=== PATIENT | male | born 1950 | race American Indian/Alaskan Native ===

== ENCOUNTER 2018-11-13 17:46 | Emergency (ER) | payer SELFPAY ==
[2018-11-13 18:57] VITALS: BP 122/61
[2018-11-13] MEDS ORDERED: NACL 0.9% 1000 ML 1,000 ML IV ONE (19:04)
--- NOTE | 2018-11-13 19:10 | Emergency Department Report ---
HPI - General Chief Complaint: Syncope Time Seen by Provider: 11/13/18 18:58 - HPI HPI: 68-year-old male presents to the emergency department after he got nauseated, vomited, got dizzy and had a near syncopal episode. The patient was outside at the [facility] working on his car today. He started getting dizzy and had not eaten much food so he drank a Coca-Cola and then chugged a bottle of water. Shortly afterwards, the patient got nauseated, vomited, and had to sit down in a chair before he passed out. He says that he never lost consciousness but definitely felt like he was out of it. When his family members called for EMS and he was brought in and received a liter of IV fluid. Currently, the patient is awake and alert, and says that he feels greatly improved. He denies any past medical history. He denies any tobacco, illicit drug or alcohol use. No recent travel or sick contacts at home. He does not have a primary care physician. ED Past Medical Hx - Past Medical History Previous Medical History?: No - Surgical History Past Surgical History?: No - Social History Smoking Status: Former Smoker Substance Use Type: None ED Review of Systems ROS: Stated complaint: N/V Other details as noted in HPI Comment: All other systems reviewed and negative Constitutional: denies: chills, fever Eyes: denies: eye pain, vision change ENT: denies: ear pain, throat pain Respiratory: denies: cough, shortness of breath Cardiovascular: denies: chest pain, palpitations Gastrointestinal: nausea, vomiting Genitourinary: denies: dysuria, discharge Musculoskeletal: denies: back pain, arthralgia Skin: denies: rash, lesions Neurological: other (dizziness). denies: headache Physical Exam - Physical Exam Vital Signs: Vital Signs 11/13/18 11/13/18 18:55 18:56 Temperature 98.4 F Pulse Rate 68 Respiratory 18 18 Rate Blood Pressure 122/61 [Left] O2 Sat by Pulse 100 100 Oximetry Physical Exam: GENERAL: The patient is well-developed well-nourished. HENT: Normocephalic. Atraumatic. Patient has moist mucous membranes. EYES: Extraocular motions are intact. Pupils equal reactive to light bilaterally. No nystagmus. NECK: Supple. Trachea is midline. CHEST/LUNGS: Clear to auscultation. There is no respiratory distress noted. HEART/CARDIOVASCULAR: Regular. There is no tachycardia. There is no murmur. ABDOMEN: Abdomen is soft, nontender. Patient has normal bowel sounds. There is no abdominal distention. SKIN: Skin is warm and dry. NEURO: The patient is awake, alert, and oriented. The patient is cooperative. The patient has no focal neurologic deficits. The patient has normal speech. Cranial nerves II through XII grossly intact. No pronator drift. MUSCULOSKELETAL: There is no tenderness or deformity. There is no limitation range of motion. There is no evidence of acute injury. ED Course Vital Signs 11/13/18 11/13/18 18:55 18:56 Temperature 98.4 F Pulse Rate 68 Respiratory 18 18 Rate Blood Pressure 122/61 [Left] O2 Sat by Pulse 100 100 Oximetry ED Medical Decision Making - Lab Data Result diagrams: 11/13/18 19:10 11/13/18 19:10 - EKG Data -: EKG Interpreted by Wy EKG shows normal: sinus rhythm, axis (left axis deviation), intervals, QRS complexes (LAFB), ST-T waves Rate: normal - EKG Data When compared to previous EKG there are: previous EKG unavailable Interpretation: other (Sinus, LAFB. No STEMI) - Medical Decision Making This patient presents to the emergency department by EMS after he had a near syncopal episode with an episode of nausea and vomiting. It may have been secondary to extended exposure to the sun. EKG did not show any signs of ST elevation [place] or dysrhythmia. Labs were unremarkable including CBC, metabolic panel, TSH, troponin and urinalysis. His vital signs were stable throughout his ED course including being afebrile. The patient was seen ambulatory within the emergency department and both appears and feels stable. He has been awake and alert throughout his ED course and there is been no other further signs of syncope, seizure, or any neurological deficits. At this time, it appears safe for discharge home for this patient. He has been instructed to follow up with primary care and return to the ER with any worsening of his symptoms or any acute distress. - Differential Diagnosis orthostatic hypotension, dehydration, dysrhythmia, hypoglycemia Critical Care Time: No Critical care attestation.: If time is entered above; I have spent that time in minutes in the direct care of this critically ill patient, excluding procedure time. ED Disposition Clinical Impression: Near syncope, Dizziness Disposition: DC-01 TO HOME OR SELFCARE Is pt being admited?: No Condition: Stable Instructions: Near Syncope (ED), Lightheadedness (ED), Dizziness (ED) Additional Instructions: Please follow-up with your primary care physician in the next few days. Return to the emergency Department with any worsening of your symptoms or any acute distress. Referrals: [facility] [Outside] - 2-3 Days MAICO HUNG MD [Staff Physician] - 2-3 Days Time of Disposition: 23:41
[2018-11-13 19:21] LABS: Hematocrit 42.4 % (35.5-45.6); Hemoglobin 13.9 gm/dl (11.8-15.2); Mean Corpuscular HGB Conc 33 % (32-34); Mean Corpuscular Volume 92 fl (84-94); Platelet Count 159 K/mm3 (140-440); Red Blood Count 4.63 M/mm3 (3.65-5.03); Red Cell Distribution Width 13.7 % (13.2-15.2)
[2018-11-13 19:44] LABS: Alanine Aminotransferase 12 units/L (7-56); Albumin 4.3 g/dL (3.9-5); BUN/Creatinine Ratio 7; Blood Urea Nitrogen 10 mg/dL (9-20); Calcium 9.2 mg/dL (8.4-10.2); Hemolysis Index 12
[2018-11-13 21:03] LABS: Color,Urine Yellow (Yellow)
[2018-11-13 21:04] LABS: Bilirubin,Urine NEG (Negative); Blood,Urine NEG (Negative); Mucus,Urine FEW /HPF; Protein,Urine <15 mg/dL mg/dL (Negative); Urobilinogen,Urine < 2.0 mg/dL (<2.0)
== END 2018-11-13 22:02 | disposition home or self-care (01) ==
LOC: ED 17:46
DX: R55 Syncope and collapse (principal); R11.2 Nausea with vomiting, unspecified; R42 Dizziness and giddiness; Z87.891 Personal history of nicotine dependence
CPT/HCPCS: 36415; 80053; 81001; 82550; 84443; 84484; 85027; 93005; 93010; 96360; 96361; 99284; J7030

== ENCOUNTER 2020-01-16 12:59 | Emergency (ER) | payer MEDICAID ==
[2020-01-16] MEDS ORDERED: DIPHtheria,PERTUSSIS(ACELL),TETANUS VACCINE/PF 0.5 ML VIAL IM ONE (14:33)
--- NOTE | 2020-01-16 15:12 | XRay Report ---
RIGHT HAND 3 VIEWS INDICATION / CLINICAL INFORMATION: right hand pain. COMPARISON: None available. FINDINGS: No significant skeletal abnormality Signer Name: Jonathon Amin MD FACJamel Signed: 01/16/2020 3:07 PM Workstation Name: [id number]
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
[2020-01-16 16:11] VITALS: BP 134/68
== END 2020-01-16 16:43 | disposition home or self-care (01) ==
LOC: ED 12:59
DX: S66.911A Strain of unspecified muscle, fascia and tendon at wrist and hand level, right hand, initial encounter (principal); S61.431A Puncture wound without foreign body of right hand, initial encounter; F32.9 Major depressive disorder, single episode, unspecified; Z87.891 Personal history of nicotine dependence; Z79.899 Other long term (current) drug therapy; W45.0XXA Nail entering through skin, initial encounter; Y93.89 Activity, other specified; Y92.89 Other specified places as the place of occurrence of the external cause; Y99.8 Other external cause status
CPT/HCPCS: 90471; 90715

== ENCOUNTER 2021-08-15 18:00 | Emergency (ER) | payer MEDICAID ==
--- NOTE | 2021-08-15 21:22 | XRay Report ---
CHEST 1 VIEW 08/15/2021 8:08 PM INDICATION / CLINICAL INFORMATION: Weakness. General weakness with bilateral pedal edema x3 days. COMPARISON: None available. FINDINGS: SUPPORT DEVICES: None. HEART / MEDIASTINUM: Heart is upper normal size. LUNGS / PLEURA: No significant pulmonary or pleural abnormality. No pneumothorax. ADDITIONAL FINDINGS: No significant additional findings. IMPRESSION: 1. Borderline cardiomegaly but no acute pulmonary or pleural findings. Signer Name: Hannah Paiz MD Signed: 08/15/2021 9:18 PM Workstation Name: [id number]
[2021-08-15 21:35] LABS: Bilirubin,Urine NEG (Negative); Blood,Urine NEG (Negative); Color,Urine Yellow (Yellow); Mucus,Urine FEW /HPF; Protein,Urine <15 mg/dL mg/dL (Negative); Urobilinogen,Urine < 2.0 mg/dL (<2.0)
[2021-08-15 21:37] LABS: Basophils % (Auto) 0.8 % (0.0-1.8); Eosinophils # (Auto) 0.2 K/mm3 (0.0-0.4); Eosinophils % (Auto) 4.8 % (0.0-4.3); Hematocrit 36.4 % (35.5-45.6); Hemoglobin 11.9 gm/dl (11.8-15.2); Lymphocytes # (Auto) 1.3 K/mm3 (1.2-5.4); Lymphocytes % (Auto) 26.9 % (13.4-35.0); Mean Corpuscular HGB Conc 33 % (32-34); Mean Corpuscular Volume 91 fl (84-94); Monocytes # (Auto) 0.7 K/mm3 (0.0-0.8); Monocytes % (Auto) 14.8 % (0.0-7.3); Platelet Count 188 K/mm3 (140-440); Red Blood Count 4.01 M/mm3 (3.65-5.03); Red Cell Distribution Width 13.6 % (13.2-15.2)
[2021-08-15 21:43] LABS: Amphetamine Screen,Urine PRESUMPTIVE NEGATIVE; Benzodiazepines Screen,Urine PRESUMPTIVE NEGATIVE; Cannabinoid Screen,Urine PRESUMPTIVE NEGATIVE; Cocaine Screen,Urine PRESUMPTIVE NEGATIVE; Methadone Screen,Urine PRESUMPTIVE NEGATIVE; Opiate Screen,Urine PRESUMPTIVE NEGATIVE
[2021-08-15 21:45] LABS: Alanine Aminotransferase 13 units/L (7-56); Albumin 3.7 g/dL (3.9-5); BUN/Creatinine Ratio 7; Blood Urea Nitrogen 8 mg/dL (9-20); Calcium 8.9 mg/dL (8.4-10.2); Hemolysis Index 4
[2021-08-15 21:53] LABS: INR 0.93 (0.87-1.13)
[2021-08-15 23:07] LABS: C-Reactive Protein 0.8 mg/dL (0.00-1.30)
--- NOTE | 2021-08-15 23:25 | Emergency Department Report ---
ED General Adult HPI - General Chief complaint: Weakness Stated complaint: WEAKNESS Time Seen by Provider: 08/15/21 20:02 Source: patient, EMS Mode of arrival: Stretcher Limitations: No Limitations - History of Present Illness Initial comments: [place] REPORTS GENERAL WEAKNESS WITH BILATERAL PEDAL EDEMA. X3 DAYS. HX DEPRESSION. PT WAS SENT FROM HIS DOCTOR IVETH FOR EVALUATION OF le EDEMA BILATERLLY , TO RULE OUT hf crf , NO SOB NO CHETS PAIN NO LEG PAIN -: Gradual, days(s) Severity scale (0 -10): 6 Worsens with: none Associated Symptoms: denies: denies other symptoms - Related Data Previous Rx's Medication Instructions Recorded Last Taken Type Naproxen 500 mg PO Q12H PRN #12 tablet 01/16/20 Unknown Rx cephALEXin [Keflex] 500 mg PO Q8HR #21 cap 01/16/20 Unknown Rx Furosemide [Lasix] 20 mg PO QDAY #14 tablet 08/15/21 Unknown Rx Allergies Allergy/AdvReac Type Severity Reaction Status Date / Time No Known Allergies Allergy Verified 08/15/21 18:05 ED Review of Systems ROS: Stated complaint: WEAKNESS Other details as noted in HPI Constitutional: denies: chills, fever Eyes: denies: eye pain, eye discharge, vision change ENT: denies: ear pain, throat pain Respiratory: denies: cough, shortness of breath, wheezing Cardiovascular: denies: chest pain, palpitations Endocrine: no symptoms reported Gastrointestinal: denies: abdominal pain, nausea, diarrhea Genitourinary: denies: urgency, dysuria Musculoskeletal: denies: back pain, joint swelling, arthralgia Skin: denies: rash, lesions Neurological: denies: headache, weakness, paresthesias Psychiatric: denies: anxiety, depression Hematological/Lymphatic: denies: easy bleeding, easy bruising ED Past Medical Hx - Past Medical History Previous Medical History?: No Hx Hypertension: No Hx Psychiatric Treatment: Yes (DEPRESSION /PTSD) - Social History Smoking Status: Never Smoker Substance Use Type: None - Medications Home Medications: Home Medications Medication Instructions Recorded Confirmed Last Taken Type Naproxen 500 mg PO Q12H PRN #12 tablet 01/16/20 Unknown Rx cephALEXin [Keflex] 500 mg PO Q8HR #21 cap 01/16/20 Unknown Rx Furosemide [Lasix] 20 mg PO QDAY #14 tablet 08/15/21 Unknown Rx ED Physical Exam - General Limitations: No Limitations General appearance: alert, in no apparent distress - Head Head exam: Present: atraumatic, normocephalic - Eye Eye exam: Present: normal appearance - ENT ENT exam: Present: mucous membranes moist - Neck Neck exam: Present: normal inspection - Respiratory Respiratory exam: Present: normal lung sounds bilaterally. Absent: respiratory distress - Cardiovascular Cardiovascular Exam: Present: regular rate, normal rhythm. Absent: systolic murmur, diastolic murmur, rubs, gallop - GI/Abdominal GI/Abdominal exam: Present: soft, normal bowel sounds - Rectal Rectal exam: Present: deferred - Extremities Exam Extremities exam: Present: normal inspection, pedal edema - Back Exam Back exam: Present: normal inspection - Neurological Exam Neurological exam: Present: alert, oriented X3 - Psychiatric Psychiatric exam: Present: normal affect, normal mood - Skin Skin exam: Present: warm, dry, intact, normal color. Absent: rash ED Course Vital Signs 08/15/21 08/15/21 08/15/21 18:01 20:07 20:10 Temperature Pulse Rate 80 76 Respiratory 15 Rate Blood Pressure Blood Pressure 135/71 [Left] O2 Sat by Pulse 98 98 98 Oximetry 08/15/21 08/15/21 08/15/21 20:15 20:16 20:30 Temperature 97.8 F Pulse Rate 69 76 64 Respiratory 19 14 17 Rate Blood Pressure 129/65 129/65 Blood Pressure 129/65 [Left] O2 Sat by Pulse 96 99 98 Oximetry 08/15/21 08/15/21 08/15/21 20:46 21:03 21:15 Temperature Pulse Rate 78 91 H 64 Respiratory 20 32 H 17 Rate Blood Pressure 129/65 Blood Pressure [Left] O2 Sat by Pulse 99 95 99 Oximetry 08/15/21 08/15/21 21:31 21:33 Temperature Pulse Rate 70 67 Respiratory 18 Rate Blood Pressure Blood Pressure [Left] O2 Sat by Pulse 97 Oximetry ED Medical Decision Making - Lab Data Result diagrams: 08/15/21 20:59 08/15/21 20:59 - EKG Data -: EKG Interpreted by Tx EKG shows normal: sinus rhythm Rate: normal - EKG Data Interpretation: no acute changes - Radiology Data Radiology results: report reviewed, image reviewed - Medical Decision Making WORK UP SHOWED NORMAL H.H , NORMAL KIDNEY FUNCTION AND BNP WELL X RAY, NO EVIDENCE OF HEART FAILURE OR RENAL FAILURE, WILL START GENTLA DIURESIS AND REFER BACK FOR FOLLOW UP WITH HER PCPC TOMORROW. NOT CONSISTANTW ITH dvt , BIALTERAL WITH ARTHRITIS PAIN. NO SOB OR CHETS PAIN Critical care attestation.: If time is entered above; I have spent that time in minutes in the direct care of this critically ill patient, excluding procedure time. ED Disposition Clinical Impression: Bilateral lower extremity edema, Swelling of lower extremity, Edema Disposition: 01 HOME / SELF CARE / HOMELESS Is pt being admited?: No Does the pt Need Aspirin: No Condition: Stable Instructions: Edema
[2021-08-16 00:04] VITALS: BP 117/80
--- NOTE | 2021-08-17 09:43 | Electrocardiograph Report ---
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
== END 2021-08-16 00:40 | disposition home or self-care (01) ==
LOC: ED 18:00
DX: R60.0 Localized edema (principal); F32.A Depression, unspecified; Z79.899 Other long term (current) drug therapy
CPT/HCPCS: 36415; 71045; 80053; 80307; 81001; 82550; 83615; 83735; 83880; 84100; 84484; 85025; 85610; 86140; 93005; 99284